=== PATIENT | male | born 1955 | race American Indian/Alaskan Native ===

== ENCOUNTER 2017-12-02 14:02 | Day surgery (SDC) | payer OTHER ==
[2017-12-02] MEDS ORDERED: NACL 0.9% 1000 ML 1,000 ML IV SCH (15:00)
[2017-12-02] MEDS ORDERED: WATER FOR IRRIG STERILE IR ONE (17:18)
[2017-12-02] MEDS ORDERED: DIPRIVAN 10 MG/ML IV ONE ×2 (18:00)
[2017-12-02] MEDS ORDERED: INFANTS' GAS RELIEF PO ONE ×2 (18:10→18:13)
--- NOTE | 2017-12-02 18:58 | Operative Report ---
Operative Report Operative Report: Date: 12/02/2017 Operative Report: Date of procedure: 12/02/2017 Procedure: Esophagogastroduodenoscopy with multiple mucosal biopsies Attending physician: Fracisco Sotomayor MD Consulting Solution Manager: Fracisco Sotomayor MD Indication: Patient is a 62-year-old male who presented with a history of epigastric pain with bloating. He also has a history of blood in stool. An upper endoscopy is done to assess patient so that treatment may be directed based on the findings. Consent: Informed consent was obtained after advising the patient and family regarding nature of this procedure, its indications, potential benefits as well as possible complications including but not limited to bleeding perforation and adverse reaction to medication, infection as well as other cardiopulmonary complications. An informed written and verbal consent was then obtained after due opportunity was provided for questions and answers. Monitoring: Patient was monitored continuously with pulse oximetry and electrocardiographic recordings as well as blood pressure recordings. Vital signs remained stable throughout this procedure with no untoward events. Preoperative assessment: Patient was assessed immediately prior to this procedure for capacity to tolerate monitored anesthesia care and moderate sedation as well as general anesthesia. Patient's ASA classification is 2, Mallampati class is 2, Hyomental distance is 3. Instrument: [employer] video endoscope Medications: Propofol given intravenously in divided doses. For details please refer to anesthesia records. Description of procedure: Patient was placed in the left lateral decubitus position after achieving sedation, the endoscope was introduced into the esophagus under direct vision. It was then advanced beyond the esophagus into the stomach and then beyond the stomach into the duodenum and to the second portion of the duodenum. It was subsequently withdrawn with careful inspection of all mucosal surfaces with the following findings. Findings: Z line was irregular. The patient had mild erosive esophagitis involving the distal esophagus. There was a 2-3 cm sliding hiatal hernia seen on entry into the stomach. There was erythema and erosions in the gastric antrum. Biopsies of the antrum were obtained for histopathology. The ampulla appeared prominent. There also appeared to be another prominence in the second portion of the duodenum. It was not clear if this represented a minor papilla. In this area there was some surrounding edema. Biopsies were obtained from this area for histopathology although endoscopically there is concern that this could represent a minor papilla. Impression: Mild erosive esophagitis. Irregular Z line. Hiatal hernia. Mucosal changes suggestive of gastritis. Duodenal prominence of unspecified significance probably representing a minor papilla Plan: Follow pathology report. Direct additional treatment based on the pathology report. Because of the prominence in the duodenum and because of patient's presentation with abdominal pain, which check a serum amylase and lipase and a hepatic function panel. Also obtain an MRCP to assess patient further.
--- NOTE | 2017-12-02 18:59 | Discharge Summary ---
Short Stay Discharge Plan Activity: advance as tolerated Weight Bearing Status: Weight Bear as Tolerated Diet: regular Follow up with: MARCE TRIVEDI MD [Primary Care Provider] - 7 Days
[2017-12-02 20:11] VITALS: BP 162/102
== END 2017-12-02 14:03 | disposition home or self-care (01) ==
LOC: GIO 14:02
PROVIDERS: ATTEND Internal Medicine Gastroenterology
DX: K20.9 Esophagitis, unspecified (principal); K22.8 Other specified diseases of esophagus; K25.9 Gastric ulcer, unspecified as acute or chronic, without hemorrhage or perforation; K44.9 Diaphragmatic hernia without obstruction or gangrene; K59.00 Constipation, unspecified; Z87.891 Personal history of nicotine dependence
CPT/HCPCS: 43239; 88305; 88342; J2704; J7030